=== PATIENT | male | born 1975 | race Caucasian/White ===

== ENCOUNTER 2019-12-26 15:29 | Outpatient (CLI) | payer OTHER, SELFPAY ==
[2019-12-26 15:48] LABS: Basophils Absolute Auto 0.1 K/mm3 (0.0-0.1); Basophils Percent Auto 0.7 % (0.2-1.2); Eosinophils Absolute Auto 0.4 K/mm3 (0-0.3); Eosinophils Percent Auto 3.6 % (0-4.4); Hemoglobin 10.9 g/dL (14.0-18.0); Immature Granulocyte Absolute 0.03 K/mm3 (0.00-0.031); Immature Granulocyte Percent A 0.3 % (0-0.5); Lymphocytes Absolute Auto 3.19 K/mm3 (0.9-3.2); Lymphocytes Percent Auto 26.7 % (18.3-44.2); Mean Corpuscular HGB Conc 32.1 g/dl (32-36); Mean Corpuscular Hemoglobin 27.5 pg (26-34); Mean Corpuscular Volume 85.9 fl (80-100); Mean Platelet Volume 10.9 fl (7.4-10.4); Monocytes Absolute Auto 0.9 K/mm3 (0.1-0.6); Monocytes Percent Auto 7.7 % (2.6-8.5); Neutrophils Absolute Auto 7.3 K/mm3 (1.3-6.7); Platelet Count Result 439 k/mm3 (150-375); Red Blood Count 3.96 M/mm3 (4.6-6.20); Red Cell Distribution Width 15.8 % (11.5-14.5)
[2019-12-26 16:40] LABS: Iron 63 ug/dL (49-181)
[2019-12-26 16:49] LABS: Alanine Aminotransferase 38 U/L (4-50); Albumin Level 4.1 g/dL (3.5-5.1); Alkaline Phosphatase 177 U/L (38-126); Aspartate Amino Transferase 41 U/L (17-59); Bilirubin,Total 0.2 mg/dL (0.2-1.3); Blood Urea Nitrogen 10 mg/dL (9-20); CRP 0.6 mg/dL (<1.0); Calcium 9.2 mg/dL (8.4-10.2); Carbon Dioxide 25 mmol/L (22-30); Chloride 103 mmol/L (98-107); Estimated Glomerular Filt Rate > 60; Glucose 89 mg/dL (75-110); Potassium 4.9 mmol/L (3.4-5.0); Sodium 136 mmol/L (137-145)
[2019-12-26 16:50] LABS: Percent Iron Saturation 14 % (20-50)
[2019-12-26 16:52] LABS: Erythrocyte Sedimentation Rate 14 mm/hr (0-20)
[2019-12-26 17:17] LABS: Ferritin 5.69 ng/mL (17.9-464)
== END 2019-12-26 15:30 | disposition home or self-care (01) ==
LOC: ANHLAB 15:31
PROVIDERS: PCP Family Medicine; Visit Provider Internal Medicine Hematology & Oncology
DX: D64.9 Anemia, unspecified (principal); D72.829 Elevated white blood cell count, unspecified
CPT/HCPCS: 36415; 80053; 82607; 82728; 83540; 83550; 85025; 85652; 86140

== ENCOUNTER 2020-04-09 14:33 | Outpatient (CLI) | payer OTHER, SELFPAY ==
[2020-04-09 14:48] LABS: Basophils Absolute Auto 0.1 K/mm3 (0.0-0.1); Basophils Percent Auto 0.4 % (0.2-1.2); Eosinophils Absolute Auto 0.3 K/mm3 (0-0.3); Eosinophils Percent Auto 2.8 % (0-4.4); Hemoglobin 13.5 g/dL (14.0-18.0); Immature Granulocyte Absolute 0.04 K/mm3 (0.00-0.031); Immature Granulocyte Percent A 0.3 % (0-0.5); Lymphocytes Absolute Auto 3.32 K/mm3 (0.9-3.2); Lymphocytes Percent Auto 26.9 % (18.3-44.2); Mean Corpuscular HGB Conc 32.9 g/dl (32-36); Mean Corpuscular Hemoglobin 29.5 pg (26-34); Mean Corpuscular Volume 89.7 fl (80-100); Mean Platelet Volume 10.5 fl (7.4-10.4); Monocytes Absolute Auto 1.1 K/mm3 (0.1-0.6); Monocytes Percent Auto 8.7 % (2.6-8.5); Neutrophils Absolute Auto 7.5 K/mm3 (1.3-6.7); Neutrophils Percent Auto 60.9 % (45.5-73.1); Platelet Count Result 374 k/mm3 (150-375); Red Blood Count 4.57 M/mm3 (4.6-6.20); Red Cell Distribution Width 16.7 % (11.5-14.5); White Blood Count 12.4 K/mm3 (4.5-10.0)
[2020-04-09 14:52] LABS: Blood Urea Nitrogen 9 mg/dL (8-26); Carbon Dioxide 22 mmol/L (22-30); Chloride 101 mmol/L (98-109); Estimated Glomerular Filt Rate > 60; Glucose 95 mg/dL (70-105); Potassium 3.5 mmol/L (3.5-4.9); Sodium 139 mmol/L (138-146)
[2020-04-09 16:34] LABS: Iron 79 ug/dL (49-181)
[2020-04-09 16:37] LABS: Alanine Aminotransferase 27 U/L (4-50); Albumin Level 4.1 g/dL (3.5-5.1); Alkaline Phosphatase 196 U/L (38-126); Aspartate Amino Transferase 21 U/L (17-59); Bilirubin,Total 0.3 mg/dL (0.2-1.3); Blood Urea Nitrogen 10 mg/dL (9-20); Calcium 9.5 mg/dL (8.4-10.2); Carbon Dioxide 24 mmol/L (22-30); Chloride 104 mmol/L (98-107); Estimated Glomerular Filt Rate > 60; Glucose 92 mg/dL (75-110); Potassium 3.9 mmol/L (3.4-5.0); Sodium 136 mmol/L (137-145)
[2020-04-09 16:44] LABS: Percent Iron Saturation 20 % (20-50)
== END 2020-04-09 14:34 | disposition home or self-care (01) ==
PROVIDERS: PCP Family Medicine; Visit Provider Internal Medicine Hematology & Oncology
DX: D64.9 Anemia, unspecified (principal)
CPT/HCPCS: 36415; 80048; 80053; 82728; 83540; 83550; 85025

== ENCOUNTER 2024-02-24 16:14 | Emergency (ER) | payer OTHER, SELFPAY ==
--- NOTE | 2024-02-24 16:17 | ED.URI ---
HPI - URI/Sore Throat General Chief Complaint: Upper Respiratory Infection Stated Complaint: Sore Throat,Fever,Headache Time Seen by Provider: 02/24/24 16:21 Source: patient Mode of arrival: ambulatory Limitations: no limitations History of Present Illness HPI Narrative: Adrian is a 48-year-old male patient presenting to the clinic today with complaints of sore throat, low-grade fever, and headache since February 14. He reports he contacted his primary care via a zoom call and they prescribed him a Z-Luis Antonio and steroids and he has finished those and states that his symptoms are still not improved. States that he has an appointment to see them on Wednesday take get a culture done but states the pain is so bad he cannot wait over the weekend. He has not taken any Tylenol or ibuprofen for pain. States he is only been gargling salt water. History of alcohol abuse-reports drinking a 6 pack per day with 2-3 shots of vodka. Also is a current smoker-1 and half packs per day. MD elicited complaint: sore throat and nasal congestion Related Data Home Medications Medication Instructions Recorded Confirmed No Home Medications 02/24/24 02/24/24 Allergies Allergy/AdvReac Type Severity Reaction Status Date / Time hydrochlorothiazide Allergy Intermediate Unknown Verified 02/24/24 16:21 Sulfa (Sulfonamide Allergy Unknown Nausea And Verified 02/24/24 16:21 Antibiotics) Vomiting Sulfonamides Allergy Intermediate dizziness, Uncoded 02/24/24 16:21 vomiting Review of Systems Review of Systems: Pertinent positives per HPI. Patient denies any rash, visual changes, dizziness, cough, shortness of breath, chest pain, palpitations, nausea, vomiting, diarrhea, constipation, abdominal pain, or any urinary issues. [facility] Family History Family History Father Family history of schizophrenia Mother Alcohol abuse Hypertension Sibling Alcohol abuse Hypertension Grandparent Alcohol abuse Social History Social History Smoking status: Current every day smoker Lack of Transportation: No Lack of Food: Never True Current Housing: I Have Housing Concerned About Future Housing: No Difficulty Paying Gas/Electric Bills: No Difficulty Paying for Meds: No Currently Unemployed: No Education: High School Diploma/GED Difficulty w/ Childcare or Family Care: No Living arrangements: with family Gender identity (if verbalized by the patient): Male Comments At the time of my signature, I reviewed and agree with the nursing past medical, surgical, social, and family history. There is no relevant family history pertinent to the patient complaint. Exam Narrative: General: Well-developed, well nourished, in no apparent distress Head: Normocephalic, atraumatic Eyes: Pupils equally round and reactive to light bilaterally, EOM intact, sclera and conjunctive clear, no discharge, lids normal Ears: TMs intact and congested, ear canals clear, no drainage, grossly hearing normal. Nose: Nares patent, clear nasal discharge, no inflammation, no sinus tenderness. Mouth: Oral pharynx red without lesions or masses, good dentition, MMM. Neck: Supple, trachea midline, no enlargement of anterior or posterior cervical nodes, no thyroid masses or goiter palpable. Cardio: Regular rate and rhythm, s1 and s2 normal, no murmur appreciated. Resp: Clear to auscultation bilaterally, no rhonchi, rales, wheezing or rubs Course Course Emergency Course: Portions of this record may have been created with voice recognition software. Level of Care: Express Care Visit Vital Signs Vital signs: Vital signs reviewed MDM - URI/Sore Throat MDM Narrative Medical decision making narrative: At the time of visit patient is resting comfortably on the exam table. Patient appears to be nontoxic. Labs: Strep test was performed and was
[2024-02-24 16:24] VITALS: BP 179/100; PULSE 83; RESP 16; TEMP 37.4; O2SAT 99
[2024-02-24 16:25] VITALS: BP 183/95
== END 2024-02-24 17:17 | disposition home or self-care (01) ==
PROVIDERS: Emergency Provider Nurse Practitioner Family; PCP Nurse Practitioner Adult Health
DX: R03.0 Elevated blood-pressure reading, without diagnosis of hypertension (principal); J02.9 Acute pharyngitis, unspecified; F10.10 Alcohol abuse, uncomplicated; F17.200 Nicotine dependence, unspecified, uncomplicated
CPT/HCPCS: 36416; 86308; 87081; 87880; 99213; G0463

== ENCOUNTER 2024-03-09 13:47 | Emergency (ER) | payer OTHER, SELFPAY ==
--- NOTE | ~2024-03-09 | CT_ITS ---
CT soft tissue neck w con Ordering provider: Araceli Antonio History: 48 years Male with . sore throat x weeks, Pain R side . Comparison: None. Technique: CT soft tissues neck was performed with contrast. Radiation reduction technique utilized. Findings: LOWER HEAD: The visualized brain parenchyma, optic globes/orbits and mastoids are normal. The visua lized paranasal sinuses are well aerated. SALIVARY GLANDS: Normal. THYROID: Normal. SUPRAHYOID DEEP SPACES: Enlarged right parapharyngeal lymph nodes measuring 1.3 and 1.4 cm. CAROTID ARTERIES: Slight calcification bilaterally JUGULAR VEINS: Normal. TONSILS: Normal. ORAL CAVITY: Partially obscured by dental amalgam but normal as visualized. PHARYNX, LARYNX AND TRACHEA: Patent and normal. No prevertebral soft tissue swelling. SUPERFICIAL SOFT TISSUES: Normal. No lymphadenopathy or neck mass. THORACIC INLET/VISUALIZED UPPER CHEST:Emphysematous changes in the apical areas. SKELETAL: Age appropriate degenerative changes. IMPRESSION: No definite abnormality in the nasopharyngeal area. Slightly enlarged lymph nodes in the right parapharyngeal space. Reviewed, dictated and finalized at location A.
--- NOTE | ~2024-03-09 | XR_ITS ---
EXAMINATION: XR chest 2V 03/09/2024 16:25 INDICATION: Vomiting blood. Sore throat. PROCEDURE: 2 view chest COMPARISON: No prior studies for comparison. FINDINGS: The lungs are clear. The lungs are hyperinflated which is consistent with, but not diagnost ic of chronic obstructive pulmonary disease. The cardiomediastinal silhouette is within normal limits . There are no pleural effusions. There is no pneumothorax suspected. IMPRESSION: 1: NO ACUTE CARDIOPULMONARY DISEASE. Reviewed, dictated and finalized at location B.
[2024-03-09 13:53] VITALS: BP 143/72; PULSE 100; RESP 18; TEMP 36.4; O2SAT 100
[2024-03-09 13:54] LABS: Glucose Point of Care 132 mg/dl (65-105)
--- NOTE | 2024-03-09 15:56 | ED.GENADULT ---
HPI - General Adult General Chief complaint: Unspecified <JENNY Parikh Last Filed: 03/09/24 16:10> Stated complaint: bilateral extremity numbness <JENNY Parikh Last Filed: 03/09/24 16:10> Time Seen by Provider: 03/09/24 15:56 <JENNY Parikh Last Filed: 03/09/24 16:10> Focused HPI: Patient is a 48 y/o male who presents to the ED with multiple complaints. patient reports having a sore throat for the past few weeks. States he has been on antibiotics for strep throat without improvement. He reports painful swelling, denies difficulty swallowing or breathing. He was scheduled to see an ENT specialist today, however reports on the way to the appointment, patient's hands began cramping and contorting and patient began having numbness in both his arms. They then presented here for further evaluation. Patient otherwise denies cough, congestion, rhinorrhea, fevers. He does report nausea, vomiting, weakness, lightheadedness, fatigue, shakiness. He endorses hematemesis this morning, bright red blood, as well as melena since last night. Denies history of GI bleed, ulcers, liver disease. Patient is a daily drinker, drinks beer and vodka. Last drink last night reportedly. GENERAL: ill and disheveled appearing, appears older than stated age, and in no acute distress. HEAD: Normocephalic, atraumatic. ENT: Mild posterior pharynx erythema. No tonsillar hypertrophy or exudate. Uvula midline. No trismus or stridor. Mild tenderness throughout R submandibular region. CHEST: Clear to auscultation. ?No respiratory distress. HEART: Regular rate and rhythm.? NEURO: ?Alert and oriented x3. Patient screened in triage and initial orders placed.? ?Additional care and disposition to be based upon?diagnostic testing and treatment. <JENNY Parikh Last Filed: 03/09/24 16:10> Source: patient <JENNY Parikh Last Filed: 03/09/24 16:10> Mode of arrival: ambulatory <JENNY Parikh Last Filed: 03/09/24 16:10> Limitations: no limitations <Araceli Antonio PA-C - Last Filed: 03/09/24 16:10> History of Present Illness HPI narrative: Patient is a 48 year old male who presents to the ED with multiple complaints including sore throat, arm numbness and vomiting blood. Patient reports having a sore throat for the past two weeks. He did a video visit with his PCP at symptom onset and was prescribed azithromycin and steroids. He does not believe the antibiotics helped. He has since also gone to an urgent care, they tested him for strep and mono which were negative. He reports painful swelling to the right side of his neck, denies difficulty swallowing or breathing. He does note a foul smell coming from his mouth and a bad breath. He was scheduled to see an ENT specialist today, however reports on the way to the appointment, patient's hands began cramping and contorting and patient began having numbness in both his arms. They then presented here for further evaluation instead. Patient otherwise denies cough, congestion, rhinorrhea, fevers. He does report nausea, vomiting, weakness, lightheadedness, fatigue, shakiness. He endorses one episode of hematemesis this morning, bright red blood, as well as black stools since last night. He denies any abdominal pain. Denies history of GI bleed, liver disease. He denies history of esophageal varices. He does note history of stomach erosion in the past and tries to avoid NSAIDS but he has used some over the last 2 weeks due to his pain. Patient is a daily drinker, drinks beer and vodka. Last drink last night reportedly. <Sandy Johnson MD - Last Filed: 03/09/24 22:13> Related Data Allergies/adverse reactions: Allergies Allergy/AdvReac Type Severity Reaction Status Date / Time hydrochlorothiazide Allergy Intermediate Unknown Verified 03/09/24 18:24 Sulfa (Sulfonamide Allergy Unknown Nausea A
[2024-03-09] MEDS: LIDOCAINE HCL 2% VISC SOLN 15 ML UDC PO (17:16)
[2024-03-09] MEDS: PANTOPRAZOLE SODIUM IV 40 MG VIAL IV PUSH (17:17)
[2024-03-09 17:34] LABS: Basophils Absolute Auto 0.1 K/mm3 (0.0-0.1); Basophils Percent Auto 0.5 % (0.2-1.2); Eosinophils Percent Auto 0.1 % (0-4.4); Hematocrit 41.7 % (42.0-52.0); Hemoglobin 14.8 g/dL (14.0-18.0); Immature Granulocyte Absolute 0.06 K/mm3 (0.00-0.031); Immature Granulocyte Percent A 0.5 % (0-0.5); Lymphocytes Percent Auto 6.2 % (18.3-44.2); Mean Corpuscular HGB Conc 35.5 g/dl (32-36); Mean Corpuscular Hemoglobin 34.4 pg (26-34); Mean Platelet Volume 10.8 fl (7.4-10.4); Monocytes Absolute Auto 1.2 K/mm3 (0.1-0.6); Neutrophils Absolute Auto 10.9 K/mm3 (1.3-6.7); Neutrophils Percent Auto 83.7 % (45.5-73.1); Platelet Count Result 235 k/mm3 (150-375); Red Cell Distribution Width 15.9 % (11.5-14.5)
[2024-03-09 17:45] LABS: INR 0.9; Prothrombin Time 12.7 Seconds (11.1-14.7)
[2024-03-09 17:46] LABS: Partial Thromboplastin Time 29.2 Seconds (22.3-36.8)
[2024-03-09 17:47] LABS: Lactic Acid Reflex 4.5 mmol/L (0.7-2.0)
[2024-03-09 17:48] LABS: Ethanol < 10 mg/dL (<10)
[2024-03-09 17:49] VITALS: PULSE 94; RESP 27; O2SAT 98
[2024-03-09 17:50] LABS: Alanine Aminotransferase 65 U/L (6-50); Albumin Level 4.3 g/dL (3.5-5.1); Alkaline Phosphatase 108 U/L (38-126); Anion Gap 10 mmol/L (4-12); Aspartate Amino Transferase 103 U/L (17-59); Bilirubin,Total 1.3 mg/dL (0.2-1.3); Blood Urea Nitrogen 16 mg/dL (9-20); Carbon Dioxide 23 mmol/L (22-30); Chloride 104 mmol/L (98-107); Estimated CRCL calculation 121 ml/min; Estimated Glomerular Filt Rate > 60; Glucose 108 mg/dL (65-110); Magnesium 1.5 mg/dL (1.6-2.3); Potassium 3.4 mmol/L (3.4-5.0); Sodium 137 mmol/L (137-145)
[2024-03-09 17:51] VITALS: BP 158/87; PULSE 94; RESP 27; TEMP 36.8; O2SAT 100
[2024-03-09 17:57] LABS: Monoscreen Negative (Negative); Negative Monotest Control Negative (Negative); Positive Monotest Control Positive (Positive)
[2024-03-09 18:03] LABS: Strep Group A RT-PCR NOT DETECTED (Negative)
[2024-03-09 18:15] LABS: Influenza A QL RT-PCR Negative (Negative); Influenza B QL RT-PCR Negative (Negative); RSV RNA, RT-PCR Negative (Negative); SARS-CoV-2 RNA PCR Negative (Negative)
[2024-03-09] MEDS: MAGNESIUM SULF 2 GM/WATER 50ML 2 GM/50 ML BAG IVPB (18:25)
[2024-03-09 18:53] VITALS: BP 147/94; PULSE 88; RESP 19; O2SAT 100
[2024-03-09 19:15] LABS: Amphetamine Screen Urine Negative (Negative); Barbiturate Screen Urine Negative (Negative); Benzodiazepines Screen Urine Negative (Negative); Cannabinoid Screen Urine Positive (Negative); Cocaine Screen Urine Negative (Negative); Methadone Screen Urine Negative (Negative); Opiate Screen Urine Negative (Negative); Phencyclidine Screen Urine Negative (Negative)
[2024-03-09 19:27] VITALS: BP 162/84; PULSE 79; RESP 17; O2SAT 99
[2024-03-09 19:38] LABS: Appearance Urine Clear (Clear); Bacteria Urine None Seen /hpf; Bilirubin Urine Negative (Negative); Blood Urine Negative (Negative); Color Urine Yellow (Yellow); Glucose Urine UA Negative (Negative); Ketones Urine 1+ mg/dL (Negative); Leukocyte Esterase Ur Negative LEU/UL (Negative); Nitrate Urine Negative (Negative); Non Pathogenic Casts 0-2; Protein Urine Trace mg/dL (Negative); RBC Urine 0-2 /hpf (0-2); Squamous Epithelial Cell Urine None Seen /hpf (Few); Urobilinogen Urine 0.2 mg/dL (<2.0); WBC Urine 0-5 /hpf (0-3); pH Urine 8.5 (5.0-9.0)
[2024-03-09 19:41] LABS: Specific Grav Ur 1.071 (1.001-1.035)
[2024-03-09 19:42] LABS: Add Urine Microscopic? YES
[2024-03-09] MEDS: LACTATED RINGERS 1,000 ML 999 ML IV CONT ×2 (20:17)
[2024-03-09 20:28] LABS: Reflex Lactic Acid Yes or No Add Lactic
[2024-03-09 20:57] LABS: Lactic Acid 2.2 mmol/L (0.7-2.0)
[2024-03-09] MEDS: AMOXICILLIN/CLAVULANATE K 875-125 MG TAB 1 TABLET PO (21:56)
[2024-03-09] MEDS: dexAMETHasone SOD PHOS INJ 10 MG/ML 1 ML VIAL IV PUSH (21:56)
== END 2024-03-09 22:13 | disposition home or self-care (01) ==
PROVIDERS: Physician Assistant; Emergency Provider Student in an Organized Health Care Education/Training Program; PCP Nurse Practitioner Adult Health
DX: K92.0 Hematemesis (principal); F17.200 Nicotine dependence, unspecified, uncomplicated; Z20.822 Contact with and (suspected) exposure to COVID-19
CPT/HCPCS: 36415; 70491; 71046; 80053; 80307; 81001; 82948; 83605; 83735; 85025; 85610; 85730; 86308; 86850; 86900; 86901; 87637; 87651; 96365; 96375; 99284; A9270; C9113; J1100; J3475; J7120; Q9967

== ENCOUNTER 2024-03-23 15:01 | Outpatient (CLI) | payer OTHER, SELFPAY ==
--- NOTE | ~2024-03-23 | XR_ITS ---
XR abdomen/kub 1V Ordering provider: Racheal Sanches APRN History: . R10.13 - Epigastric pain . Comparison: None. FINDINGS: BOWEL: Nonobstructive bowel gas pattern. ORGANOMEGALY: None. SIGNIFICANT PATHOLOGIC CALCIFICATIONS: None. OTHER: No free air is seen under the diaphragm. IMPRESSION: NO ACUTE ABDOMINAL FINDINGS. Reviewed, dictated and finalized at location A.
[2024-03-23 18:57] LABS: Basophils Absolute Auto 0.1 K/mm3 (0.0-0.1); Basophils Percent Auto 0.9 % (0.2-1.2); Eosinophils Absolute Auto 0.3 K/mm3 (0-0.3); Eosinophils Percent Auto 2.4 % (0-4.4); Hematocrit 45.8 % (42.0-52.0); Hemoglobin 15.2 g/dL (14.0-18.0); Immature Granulocyte Absolute 0.07 K/mm3 (0.00-0.031); Immature Granulocyte Percent A 0.5 % (0-0.5); Lymphocytes Absolute Auto 1.89 K/mm3 (0.9-3.2); Lymphocytes Percent Auto 13.5 % (18.3-44.2); Mean Corpuscular HGB Conc 33.2 g/dl (32-36); Mean Corpuscular Hemoglobin 33.5 pg (26-34); Mean Corpuscular Volume 100.9 fl (80-100); Mean Platelet Volume 9.8 fl (7.4-10.4); Monocytes Absolute Auto 1.4 K/mm3 (0.1-0.6); Neutrophils Absolute Auto 10.2 K/mm3 (1.3-6.7); Neutrophils Percent Auto 72.7 % (45.5-73.1); Platelet Count Result 505 k/mm3 (150-375); Red Blood Count 4.54 M/mm3 (4.6-6.20)
[2024-03-23 19:06] LABS: Alanine Aminotransferase 20 U/L (6-50); Albumin Level 4.3 g/dL (3.5-5.1); Alkaline Phosphatase 124 U/L (38-126); Anion Gap 7 mmol/L (4-12); Aspartate Amino Transferase 60 U/L (17-59); Bilirubin,Total 0.4 mg/dL (0.2-1.3); Blood Urea Nitrogen 8 mg/dL (9-20); Carbon Dioxide 26 mmol/L (22-30); Chloride 107 mmol/L (98-107); Estimated Glomerular Filt Rate > 60; Glucose 91 mg/dL (65-110); Potassium 4.7 mmol/L (3.4-5.0); Sodium 140 mmol/L (137-145)
[2024-03-23 20:12] LABS: Folic Acid > 20.0 ng/mL (2.76->20)
== END 2024-03-23 15:02 | disposition home or self-care (01) ==
LOC: ANHBWCLAB 15:03
PROVIDERS: PCP Nurse Practitioner Adult Health; Visit Provider Nurse Practitioner Adult Health
DX: F10.10 Alcohol abuse, uncomplicated (principal); R10.13 Epigastric pain
CPT/HCPCS: 36415; 74018; 80048; 80076; 82607; 82746; 85025

== ENCOUNTER 2024-07-09 12:13 | Emergency (ER) | payer OTHER, SELFPAY ==
[2024-07-09] VITALS (11 sets, daily range): BP systolic 142–182; BP diastolic 92–112; PULSE 62–108; RESP 14–22; TEMP 36.5; O2SAT 96–100
--- NOTE | ~2024-07-09 | CT_ITS ---
EXAMINATION: CT soft tissue neck w con DATE: 07/09/2024 14:29 INDICATION: TECHNIQUE: Computed tomography (CT) of the neck was performed with 75 mL Omnipaque-350 intravenous co ntrast. The dose-length product was 510.72 mGy-cm. COMPARISON: 03/09/2024 FINDINGS: The thyroid gland is unremarkable. The submandibular and parotid glands are symmetric. Necrotic l ymph node enlargement in the upper right anterior cervical chain. Laryngeal mass, epicenter is approx imately subglottic and to the right of midline, with nodular supraglottic extension involving the rig ht vallecula and right side of the epiglottis, and masslike retropharyngeal extension, at the level o f the origin of the esophagus. The superior mediastinum is unremarkable. The airway is moderately narrowed by the above-described mass. The right parapharyngeal fat plane and retropharyngeal fat pl anes are obscured. Normal enhancing neck arteries. The orbits are unremarkable. Visualized sinus es and mastoid air cells are well aerated. Severe emphysematous change There is cervical spondylos is. 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 Likely involvement of the origin of the esophagus. Infection extending into the retropharyngeal space could appear similarly and is not excluded. Reviewed, dictated and finalized at location K. IMPRESSION: Laryngeal mass with retropharyngeal extension, right anterior cervical chain ly mph node metastasis, and moderate airway narrowing. Likely involvement of the o rigin of the esophagus. Infection extending into the retropharyngeal space coul d appear similarly and is not excluded.
--- NOTE | ~2024-07-09 | XR_ITS ---
EXAMINATION: XR chest 1V portable DATE: 07/09/2024 12:28 INDICATION: Shortness of breath. TECHNIQUE: A single frontal view of the chest was obtained on 2 radiographs. COMPARISON: Chest 2 views 03/09/2024 FINDINGS: There is no pneumonia, pleural effusion, or pneumothorax. The heart size is normal. There a re old healed right rib fractures. IMPRESSION: 1. No acute cardiopulmonary disease. Reviewed, dictated and finalized at location A.
--- NOTE | ~2024-07-09 | CT_ITS ---
EXAMINATION: CTA chest PE protocol DATE: 07/09/2024 14:29 INDICATION: SOB TECHNIQUE: Computed tomography angiography (CTA) of the chest was performed with 100 mL Omnipaque-350 intravenous contrast timed to evaluate the pulmonary arteries. Coronal maximum intensity projection 3D-reconstructions were created by the technologist. The dose-length product (DLP) was 510.72 mGy-cm. Automated exposure control and iterative reconstruction technique were employed. COMPARISON: 08/20/2018; MRCP 01/05/2019. FINDINGS: Lung parenchyma and airways: Severe emphysematous change. Airway debris in the distal trachea and rig ht mainstem bronchus. Pleura: Unremarkable. Thoracic inlet, axillae and chest wall: Glottic mass, with supraglottic and infraglottic extension.. Thoracic aorta: No significant dilation. No dissection. Mediastinum: Normal. Heart and pericardium: Normal. Coronary artery calcifications: Absent. Upper abdomen: Intraluminal thrombus in the main portal vein. Biliary stent. Conglomerate pancreatic or jerel mass in the shilpa hepatis. Bones: No acute osseous finding. Pulmonary arteries: Study quality: Motion limited evaluation of the lateral lower lobe subsegmental a rteries. Otherwise, pulmonary emboli detected. IMPRESSION: Limited evaluation of the bilateral lower lobe subsegmental arteries. No CT evidence of acute pulmona ry embolus in the adequately visualized pulmonary arteries. Glottic mass, see concurrent CT soft tissue neck for further detail. Severe emphysematous change. Airway debris. Pancreatic/jerel mass in the upper abdomen. Portal vein thrombosis. Reviewed, dictated and finalized at location K. IMPRESSION: Limited evaluation of the bilateral lower lobe subsegmental arteries. No CT kapil dence of acute pulmonary embolus in the adequately visualized pulmonary arterie s. Glottic mass, see concurrent CT soft tissue neck for further detail. Severe emphysematous change. Airway debris. Pancreatic/jerel mass in the upper abdomen. Portal vein thrombosis.
--- NOTE | 2024-07-09 12:21 | ECG_ITS ---
Test Date: 2024-07-09 12:20:47 Measurements Intervals [place] Rate: 91 P: 94 GA: 156 QRS: 86 QRSD: 112 T: 62 QT: 287 QTc: 353 Interpretive Statements SINUS RHYTHM POSSIBLE RIGHT ATRIAL ENLARGEMENT [0.25mV P WAVE] MODERATE INTRAVENTRICULAR CONDUCTION DELAY [110+ ms QRS DURATION] NONSPECIFIC ST & T-WAVE ABNORMALITY No previous ECG available for comparison Electronically Signed On 07-09-2024 13:35:51 CDT by Flakito Humphreys M.D.
[2024-07-09] MEDS: ALBUTEROL SULFATE NEB 2.5 MG/3 ML INH 5 MG INHALATION (12:37)
--- NOTE | 2024-07-09 12:42 | PC.NURSE ---
RT at bedside. Pt receiving breathing treatment.
--- NOTE | 2024-07-09 12:49 | ED.GENADULT ---
HPI - General Adult General Chief complaint: Shortness of Breath/Dyspnea Stated complaint: sob Time Seen by Provider: 07/09/24 12:16 History of Present Illness HPI narrative: 48-year-old male presents to the emergency department for evaluation for increased difficulty breathing. Patient does have history of throat cancer and they state he is not a candidate for surgery or for chemo. Patient is getting set up with radiation therapy but has not yet started. Patient did have a biopsy last week and states he has had worsening swelling since that biopsy. Patient is currently a smoker and used to smoke up to 2 packs a day but states he has cut back. Patient states that the shortness of breath did acutely worsened today. Patient does have some stridor on exam. Related Data Home Medications Medication Instructions Recorded Confirmed Magic Mouthwash 50 mL suspension 30 ml PO .prn PRN #50 mL 04/26/24 Allergies Allergy/AdvReac Type Severity Reaction Status Date / Time hydrochlorothiazide Allergy Intermediate Unknown Verified 07/09/24 12:21 Sulfa (Sulfonamide Allergy Unknown Nausea And Verified 07/09/24 12:21 Antibiotics) Vomiting Sulfonamides Allergy Intermediate dizziness, Uncoded 07/09/24 12:21 vomiting Review of Systems Review of Systems: All systems reviewed & are unremarkable except as noted in HPI and below PMFSH Family History Family History Father Family history of schizophrenia Mother Alcohol abuse Hypertension Sibling Alcohol abuse Hypertension Grandparent Alcohol abuse Social History Social History Smoking packs per day: 1.5 Smoking cigarettes per day: 30.0 Years smoked: 30 Smoking pack-years: 45.00 Smoking status: Current every day smoker Tobacco type: cigarettes Alcohol intake: current Alcohol use details: 6 pack beer, 5 shots vodka a day Substance use: current Substance use type: marijuana Other substance usage details: every once in awhile Lack of Transportation: No Lack of Food: Never True Current Housing: I Have Housing Concerned About Future Housing: No Difficulty Paying Gas/Electric Bills: No Difficulty Paying for Meds: No Currently Unemployed: No Education: High School Diploma/GED Difficulty w/ Childcare or Family Care: No Living arrangements: with family Additional living arrangements comments: [facility] [phone] Gender identity (if verbalized by the patient): Male Spiritual care concerns: No Exam Narrative: APPEARANCE: Well appearing, no pain, no distress, well-nourished. HEAD: normocephalic, atraumatic. EYES: PERRLA/EOMI, conjunctivae clear. NOSE: Normal no drainage EARS:TMS clear with good light reflex. THROAT: Right lateral neck swelling with stridor NECK: Supple. No adenopathy, no masses. RESPIRATORY: Airway patent, respirations nonlabored. Clear to auscultation bilaterally, no rales, rhonchi, wheezing. CARDIOVASCULAR: Regular rate and rhythm without murmurs rubs or gallops. ABDOMINAL: Soft, nontender, nondistended, normal bowel sounds MUSCULOSKELETAL: Moves all extremities. Strength/ROM intact, No edema, No calf tenderness. NEURO: Alert. Cranial nerves II through XII intact. Grossly intact SKIN: Warm, dry. Normal Color Course Vital Signs Vital signs: Vital Signs Temperature 97.7 F 07/09/24 12:14 Pulse Rate 90 07/09/24 12:14 Respiratory Rate 22 H 07/09/24 12:14 Blood Pressure 158/94 H 07/09/24 12:14 Pulse Oximetry 98 07/09/24 12:14 Oxygen Delivery Room Air 07/09/24 12:14 Temperature 97.7 F 07/09/24 12:14 Pulse Rate 90 07/09/24 16:12 Respiratory Rate 16 07/09/24 16:12 Blood Pressure 161/97 H 07/09/24 16:12 Pulse Oximetry 97 07/09/24 16:12 Oxygen Delivery Room Air 07/09/24 12:29 Medical Decision Making MDM Narrative Medical decision making narrati
[2024-07-09] MEDS: racEPINEPHrine 2.25% NEBU SOLN 0.5 ML VIAL.NEB INHALATION (12:54)
[2024-07-09 13:14] LABS: Influenza A QL RT-PCR Negative (Negative); Influenza B QL RT-PCR Negative (Negative); RSV RNA, RT-PCR Negative (Negative); SARS-CoV-2 RNA PCR Negative (Negative)
[2024-07-09] MEDS: dexAMETHasone SOD PHOS INJ 10 MG/ML 1 ML VIAL IV PUSH (13:35)
[2024-07-09 14:02] LABS: Basophils Absolute Auto 0.1 K/mm3 (0.0-0.1); Basophils Percent Auto 0.5 % (0.2-1.2); Eosinophils Absolute Auto 0.3 K/mm3 (0-0.3); Eosinophils Percent Auto 1.6 % (0-4.4); Hematocrit 30.8 % (42.0-52.0); Hemoglobin 10.2 g/dL (14.0-18.0); Immature Granulocyte Absolute 0.07 K/mm3 (0.00-0.031); Immature Granulocyte Percent A 0.4 % (0-0.5); Lymphocytes Absolute Auto 2.04 K/mm3 (0.9-3.2); Lymphocytes Percent Auto 12.5 % (18.3-44.2); Mean Corpuscular HGB Conc 33.1 g/dl (32-36); Mean Corpuscular Hemoglobin 26.7 pg (26-34); Mean Corpuscular Volume 80.6 fl (80-100); Mean Platelet Volume 8.8 fl (7.4-10.4); Monocytes Absolute Auto 1.4 K/mm3 (0.1-0.6); Monocytes Percent Auto 8.8 % (2.6-8.5); Neutrophils Absolute Auto 12.5 K/mm3 (1.3-6.7); Neutrophils Percent Auto 76.2 % (45.5-73.1); Platelet Count Result 650 k/mm3 (150-375); Red Blood Count 3.82 M/mm3 (4.6-6.20); Red Cell Distribution Width 18.6 % (11.5-14.5); White Blood Count 16.3 K/mm3 (4.5-10.0)
[2024-07-09 14:13] LABS: INR 0.9
[2024-07-09 14:14] LABS: Partial Thromboplastin Time 36.1 Seconds (22.3-36.8)
[2024-07-09 14:17] LABS: Estimated CRCL calculation 94 ml/min; Estimated Glomerular Filt Rate > 60
[2024-07-09 14:37] LABS: Alanine Aminotransferase 12 U/L (6-50); Alkaline Phosphatase 93 U/L (38-126); Anion Gap 10 mmol/L (4-12); Aspartate Amino Transferase 20 U/L (17-59); Bilirubin,Total 0.4 mg/dL (0.2-1.3); Blood Urea Nitrogen 13 mg/dL (9-20); Calcium 11.8 mg/dL (8.4-10.2); Carbon Dioxide 24 mmol/L (22-30); Chloride 98 mmol/L (98-107); Estimated CRCL calculation 108 ml/min; Estimated Glomerular Filt Rate > 60; Glucose 129 mg/dL (65-110); Potassium 2.4 mmol/L (3.4-5.0); Sodium 132 mmol/L (137-145)
--- NOTE | 2024-07-09 15:29 | PC.NURSE ---
Pt refusing transfer to [place]. Pt is A&Ox4. Risks discussed with pt at bedside by MD Vu. Pt verbalized understanding risks. AMA form signed and placed in physical chart. Per MD Vu, pt should be d/c from computer and not removed as an AMA. Waiting on disc from CT to send home with pt prior to d/c. Pt and visitor updated.
== END 2024-07-09 16:15 | disposition home or self-care (01) ==
PROVIDERS: Emergency Provider Emergency Medicine; PCP Nurse Practitioner Adult Health
DX: C32.9 Malignant neoplasm of larynx, unspecified (principal); Z20.822 Contact with and (suspected) exposure to COVID-19; F17.210 Nicotine dependence, cigarettes, uncomplicated
CPT/HCPCS: 36415; 70491; 71045; 71275; 80053; 85025; 85610; 85730; 87637; 93005; 94640; 96374; 99284; J1100; Q9967